=== PATIENT | female | born 1960 | race Caucasian/White ===

== ENCOUNTER → 2019-07-01 09:09 | Outpatient (BNVA) | payer SELFPAY | PROVIDERS: Family Provider Nurse Practitioner; PCP Nurse Practitioner; Visit Provider Nurse Practitioner | DX: R73.09 Other abnormal glucose (principal) | CPT/HCPCS: 83036 ==

== ENCOUNTER 2019-08-10 15:18 | Outpatient (REF) | payer SELFPAY ==
[2019-08-10 18:23] LABS: Chol HDL Ratio 3.35 mg/dL (0.0-4.40); Cholesterol 191 mg/dL (0-200); Glucose 56 mg/dL (65-115); HDL Cholesterol 57 mg/dL (60-100); LDL Cholesterol Calculated 114 mg/dL (50-129); Triglycerides 100 mg/dL (0-150)
[2019-08-10 21:37] LABS: Estmated Average Glucose 114; Hemoglobin A1C 5.6 % (4.0-6.0)
== END 2019-08-10 15:19 | disposition home or self-care (01) ==
LOC: LAB 15:18
PROVIDERS: Family Provider Nurse Practitioner; PCP Nurse Practitioner; Visit Provider Dermatology
DX: Z13.9 Encounter for screening, unspecified (principal)
CPT/HCPCS: 80061; 82947; 83036

== ENCOUNTER → 2019-10-18 17:20 | Outpatient (BNVA) | payer SELFPAY | PROVIDERS: Family Provider Nurse Practitioner; PCP Nurse Practitioner; Visit Provider Nurse Practitioner | DX: J44.9 Chronic obstructive pulmonary disease, unspecified (principal); F41.9 Anxiety disorder, unspecified; E03.8 Other specified hypothyroidism; G25.81 Restless legs syndrome; M81.0 Age-related osteoporosis without current pathological fracture; M54.12 Radiculopathy, cervical region; E78.2 Mixed hyperlipidemia; E55.9 Vitamin D deficiency, unspecified | CPT/HCPCS: 80053; 80061; 84443 ==

== ENCOUNTER → 2019-11-09 16:26 | Outpatient (BNVA) | payer SELFPAY | PROVIDERS: Family Provider Nurse Practitioner; PCP Nurse Practitioner; Visit Provider Nurse Practitioner | DX: R51 Headache (principal); E78.2 Mixed hyperlipidemia | CPT/HCPCS: 81000; 81003; 85025 ==

== ENCOUNTER → 2019-11-17 11:13 | Outpatient (BNVA) | payer SELFPAY | PROVIDERS: Family Provider Nurse Practitioner; PCP Nurse Practitioner; Visit Provider Nurse Practitioner | DX: E55.9 Vitamin D deficiency, unspecified (principal); M25.50 Pain in unspecified joint; M25.9 Joint disorder, unspecified | CPT/HCPCS: 82306; 82607; 85651; 86140 ==

== ENCOUNTER → 2019-11-21 17:00 | Outpatient (BNVA) | payer OTHER, SELFPAY | PROVIDERS: Family Provider Nurse Practitioner; PCP Nurse Practitioner; Visit Provider Nurse Practitioner | DX: M25.50 Pain in unspecified joint (principal); Z20.828 Contact with and (suspected) exposure to other viral communicable diseases; J44.9 Chronic obstructive pulmonary disease, unspecified; E78.2 Mixed hyperlipidemia | CPT/HCPCS: 87635 ==

== ENCOUNTER → 2019-12-06 09:20 | Outpatient (BNVA) | payer OTHER, SELFPAY | PROVIDERS: Family Provider Nurse Practitioner; PCP Nurse Practitioner; Visit Provider Nurse Practitioner | DX: Z20.828 Contact with and (suspected) exposure to other viral communicable diseases (principal) | CPT/HCPCS: 87635 ==

== ENCOUNTER → 2019-12-21 08:00 | Outpatient (BNVA) | payer OTHER, SELFPAY | PROVIDERS: Family Provider Nurse Practitioner; PCP Nurse Practitioner; Visit Provider Nurse Practitioner Family | DX: U07.1 COVID-19 (principal); Z20.828 Contact with and (suspected) exposure to other viral communicable diseases | CPT/HCPCS: 87635 ==

== ENCOUNTER → 2019-12-27 11:13 | Outpatient (BNVA) | payer OTHER, SELFPAY | PROVIDERS: Family Provider Nurse Practitioner; PCP Nurse Practitioner; Visit Provider Nurse Practitioner | DX: U07.1 COVID-19 (principal); Z20.828 Contact with and (suspected) exposure to other viral communicable diseases | CPT/HCPCS: 87635 ==

== ENCOUNTER → 2020-01-04 14:27 | Outpatient (BNVA) | payer OTHER, SELFPAY | PROVIDERS: Family Provider Nurse Practitioner; PCP Nurse Practitioner; Visit Provider Nurse Practitioner | DX: U07.1 COVID-19 (principal) | CPT/HCPCS: 87635 ==

== ENCOUNTER → 2020-01-16 15:22 | Outpatient (BNVA) | payer SELFPAY | PROVIDERS: Family Provider Nurse Practitioner; PCP Nurse Practitioner; Visit Provider Nurse Practitioner | DX: J44.9 Chronic obstructive pulmonary disease, unspecified (principal); R05 Cough | CPT/HCPCS: 71046; 85025 ==

== ENCOUNTER 2020-01-20 12:52 | Outpatient (CLI) | payer OTHER, SELFPAY ==
--- NOTE | 2020-01-20 13:00 | CT_ITS ---
WS: [id number] CT CHEST ANGIOGRAPHY WITH REFORMATS HISTORY: sob had COVID 11/21/19 TECHNIQUE: Contiguous axial images are obtained through the chest during arterial injection of intrav enous contrast. Images are reconstructed to evaluate the pulmonary arteries. MIP imaging also reviewe d. All CT scans at [facility] use at least one of these dose optimization techniques: aut omated exposure control; mA and/or kV adjustment per patient size (includes targeted exams where dose is matched to clinical indication); or iterative reconstruction. CONTRAST: Omnipaque 350; 95 mL IV. DLP: 539.14 mGy.cm COMPARISON: None available. Good opacification of the pulmonary arteries. No pulmonary emboli. Normal size pulmonary artery. Norm al size aorta with mild atherosclerosis. Cardiac chambers are normal size. No significant adenopathy. RIGHT hilar lymph node measures 8 mm. Aberrant RIGHT subclavian artery. Hyperinflated lungs with emphysema. No pneumonia. 4 mm nodule adjacent to the RIGHT minor fissure. No pleural effusion. No pericardial effusion. No abnormality in the upper abdomen. Mild increase in tho racic kyphosis. CT/CT angio chest PE protcl [id number] IMPRESSION: 1. No pulmonary embolism. 2. Chronic emphysema with no pneumonia. 3. Mild atherosclerosis aorta. 4. Aberrant RIGHT subclavian artery.
[2020-01-20] MEDS: iohexol 350 mg/mL 100 mL Btl IV (14:01)
== END 2020-01-20 12:53 | disposition home or self-care (01) ==
LOC: RAD 12:54
PROVIDERS: Family Provider Nurse Practitioner; PCP Nurse Practitioner; Visit Provider Nurse Practitioner
DX: R06.02 Shortness of breath (principal); J43.9 Emphysema, unspecified; I70.0 Atherosclerosis of aorta; Q27.8 Other specified congenital malformations of peripheral vascular system
CPT/HCPCS: 71275

== ENCOUNTER → 2020-01-30 10:44 | Outpatient (BNVA) | payer OTHER, SELFPAY | PROVIDERS: Family Provider Nurse Practitioner; PCP Nurse Practitioner; Visit Provider Nurse Practitioner | DX: R07.9 Chest pain, unspecified (principal); E78.2 Mixed hyperlipidemia; J44.9 Chronic obstructive pulmonary disease, unspecified; K21.9 Gastro-esophageal reflux disease without esophagitis | CPT/HCPCS: 80053; 80061; 85025 ==

== ENCOUNTER 2020-03-23 15:14 | Outpatient (CLI) | payer OTHER, SELFPAY ==
--- NOTE | 2020-03-23 15:45 | USCV_ITS ---
Neena Vero Age: 59 Gender: F : 1960 Exam Date: 03/23/2020 15:37 Ordering Phys: Benjamin Miranda Technologist: Wero Knapp Exam Location: [facility] [place] Indication: SOB CHEST PAIN BP: 128 / 81 HR: 88 Rhythm: Sinus Technical Quality: Fair MEASUREMENTS (Male / Female) Normal Values 2D ECHO LV Diastolic Diameter PLAX 3.2 cm 4.2 - 5.9 / 3.9 - 5.3 cm LV Systolic Diameter PLAX 2.0 cm IVS Diastolic Thickness 0.8 cm 0.6 - 1.0 / 0.6 - 0.9 cm IVS Systolic Thickness 1.4 cm LVPW Diastolic Thickness 0.8 cm 0.6 - 1.0 / 0.6 - 0.9 cm LVPW Systolic Thickness 1.0 cm LVOT Diameter 2.1 cm LV Ejection Fraction 2D Teich 70.0 % LV Ejection Fraction MOD 2C 57.1 % LV Ejection Fraction 2C AL 56.8 % LA Diameter 3.0 cm LA Width 2.3 cm LA Height 4.0 cm RA Width 2.3 cm RA Height 4.0 cm Aorta at Sinotubular Diameter 1.0 cm M-MODE LV Diastolic Diameter MM 4.0 cm 4.2 - 5.9 / 3.9 - 5.3 cm LV Systolic Diameter MM 2.5 cm LV Ejection Fraction MM Teich 68.2 % IVS Diastolic Thickness MM 0.9 cm 0.6 - 1.0 / 0.6 - 0.9 cm IVS Systolic Thickness MM 1.4 cm LVPW Diastolic Thickness MM 1.4 cm 0.6 - 1.0 / 0.6 - 0.9 cm LVPW Systolic Thickness MM 1.5 cm RV Diastolic Diameter MM 1.3 cm Aortic Annulus Diameter 3.1 cm LA Ao Ratio MM 1.0 MV E Point Septal Separation 0.7 cm DOPPLER AV Peak Velocity 101.0 cm/s LVOT Peak Velocity 88.0 cm/s AV Area Cont Eq vti 3.1 cm squared AV Area Cont Eq pk 2.9 cm squared MV Area PHT 5.0 cm squared Mitral E to A Ratio 0.7 MV E' Velocity 28.5 cm/s Mitral E to MV E' Ratio 6.2 Mitral E to LV E' Lateral Ratio 7.2 Mitral E to LV E' Septal Ratio 5.5 TR Peak Velocity 160.0 cm/s TR Peak Gradient 10.2 mmHg TV Peak E Velocity 87.0 cm/s Right Atrial Pressure 3.0 mmHg Pulmonary Artery Systolic Pressu 13.2 mmHg PV Peak Velocity 106.0 cm/s FINDINGS Left Ventricle Normal left ventricular size, systolic function and wall thickness, with no regional wall motion abnormalities. Left ventricular ejection fraction is estimated at 65%. Normal diastolic function. Right Ventricle Normal right ventricular size and systolic function. Right ventricular systolic pressure 13.2 mmHg. Right Atrium Normal right atrial size. Left Atrium Normal left atrial size. Mitral Valve Mitral valve not well visualized. Mildly thickened mitral valve. No mitral valve stenosis. No mitral valve regurgitation. Aortic Valve Aortic valve not well visualized. No aortic valve stenosis. No aortic valve regurgitation. Tricuspid Valve Structurally normal tricuspid valve. Pulmonic Valve Pulmonic valve not well visualized. No pulmonary valve stenosis. Pericardium No pericardial effusion. Aorta Normal size aortic root and proximal ascending aorta. CONCLUSIONS 1. Normal left ventricular size, systolic function and wall thickness, with no regional wall motion abnormalities. Left ventricular ejection fraction is estimated at 65%. Normal diastolic function. 2. Normal right ventricular size and systolic function. 3. When compared to previous echocardiogram dated 07/27/2013, there has been no significant change. Carolina Sandoval MD (Electronically Signed) Final Date: 26 March 2020 17:59 S
== END 2020-03-23 15:15 | disposition home or self-care (01) ==
LOC: US 15:16
PROVIDERS: PCP Nurse Practitioner; Visit Provider Nurse Practitioner
DX: R07.9 Chest pain, unspecified (principal); R06.02 Shortness of breath; E03.8 Other specified hypothyroidism
CPT/HCPCS: 80053; 84443; 93306

== ENCOUNTER → 2020-03-30 11:48 | Outpatient (BNVA) | payer OTHER, SELFPAY | PROVIDERS: PCP Nurse Practitioner; Visit Provider Nurse Practitioner Family | DX: Z12.31 Encounter for screening mammogram for malignant neoplasm of breast (principal); R59.0 Localized enlarged lymph nodes; Z12.39 Encounter for other screening for malignant neoplasm of breast | CPT/HCPCS: 80053; 85025 ==

== ENCOUNTER 2020-04-04 11:22 | Outpatient (CLI) | payer OTHER, SELFPAY ==
--- NOTE | 2020-04-04 11:30 | MM_ITS ---
WS: [id number] BILATERAL DIGITAL SCREENING MAMMOGRAPHY WITH CAD CLINICAL INFORMATION: breast cancer screening HISTORY: Screening mammogram. No current complaints. COMPARISON: TECHNIQUE: Bilateral CC and MLO views. FINDINGS: The breasts are composed of heterogeneous fibroglandular density tissue, which can limit the detectio n of small underlying mass lesions. No suspicious mass, asymmetry, calcifications, or architectural d istortion. No evidence of malignancy. Punctate and lucent centered calcifications. Biopsy clip right breast. MM/[place] [id number] IMPRESSION: BI-RADS: 2-Benign FOLLOW UP: 1 Year Follow-up Recommend return to annual screening mammography.
== END 2020-04-04 11:23 | disposition home or self-care (01) ==
LOC: RADSHAW 11:24
PROVIDERS: PCP Nurse Practitioner; Visit Provider Nurse Practitioner Family
DX: Z12.31 Encounter for screening mammogram for malignant neoplasm of breast (principal)
CPT/HCPCS: 77067

== ENCOUNTER → 2020-10-29 14:37 | Outpatient (BNVA) | payer OTHER, SELFPAY | PROVIDERS: PCP Nurse Practitioner; Visit Provider Nurse Practitioner | DX: E03.8 Other specified hypothyroidism (principal); E78.2 Mixed hyperlipidemia; M79.18 Myalgia, other site | CPT/HCPCS: 80053; 80061; 84443; 85025 ==

== ENCOUNTER → 2020-12-06 11:04 | Outpatient (BNVA) | payer OTHER, SELFPAY | PROVIDERS: PCP Nurse Practitioner; Visit Provider Nurse Practitioner Family | DX: Z11.52 Encounter for screening for COVID-19 (principal); J44.1 Chronic obstructive pulmonary disease with (acute) exacerbation; R42 Dizziness and giddiness | CPT/HCPCS: 87635 ==

== ENCOUNTER → 2021-06-20 11:45 | Outpatient (BNVA) | payer OTHER, SELFPAY | PROVIDERS: PCP Nurse Practitioner; Visit Provider Nurse Practitioner | DX: M25.511 Pain in right shoulder (principal) | CPT/HCPCS: 73030 ==

== ENCOUNTER → 2021-06-24 09:05 | Outpatient (BNVA) | payer OTHER, SELFPAY | PROVIDERS: PCP Nurse Practitioner; Visit Provider Nurse Practitioner | DX: E03.8 Other specified hypothyroidism (principal); E78.2 Mixed hyperlipidemia; E55.9 Vitamin D deficiency, unspecified | CPT/HCPCS: 80053; 80061; 84443 ==

== ENCOUNTER → 2022-01-03 09:00 | Outpatient (BNVA) | payer OTHER, SELFPAY | PROVIDERS: PCP Nurse Practitioner; Visit Provider Nurse Practitioner | DX: E78.2 Mixed hyperlipidemia (principal); E03.8 Other specified hypothyroidism; J44.9 Chronic obstructive pulmonary disease, unspecified; M81.0 Age-related osteoporosis without current pathological fracture; E55.9 Vitamin D deficiency, unspecified; F41.9 Anxiety disorder, unspecified; R09.82 Postnasal drip; G43.509 Persistent migraine aura without cerebral infarction, not intractable, without status migrainosus; G25.81 Restless legs syndrome; K21.9 Gastro-esophageal reflux disease without esophagitis; F32.9 Major depressive disorder, single episode, unspecified | CPT/HCPCS: 80053; 80061; 84443; 85025 ==

== ENCOUNTER → 2022-07-10 12:13 | Outpatient (BNVA) | payer MEDICARE, SELFPAY | PROVIDERS: PCP Nurse Practitioner; Visit Provider Nurse Practitioner | DX: E03.8 Other specified hypothyroidism (principal); E55.9 Vitamin D deficiency, unspecified; E78.2 Mixed hyperlipidemia | CPT/HCPCS: 80053; 80061; 82306; 84443; 85025 ==

== ENCOUNTER → 2022-11-20 13:52 | Outpatient (BNVA) | payer MEDICARE, SELFPAY | PROVIDERS: PCP Nurse Practitioner; Visit Provider Nurse Practitioner Family | DX: R10.30 Lower abdominal pain, unspecified (principal); R39.9 Unspecified symptoms and signs involving the genitourinary system | CPT/HCPCS: 74018; 80053; 81000; 85025 ==

== ENCOUNTER → 2022-11-24 08:55 | Outpatient (BNVA) | payer MEDICARE, SELFPAY | PROVIDERS: PCP Nurse Practitioner; Visit Provider Nurse Practitioner Family | DX: K56.7 Ileus, unspecified (principal); R10.30 Lower abdominal pain, unspecified; K59.00 Constipation, unspecified | CPT/HCPCS: 74018 ==

== ENCOUNTER → 2022-12-26 15:18 | Outpatient (BNVA) | payer MEDICARE, SELFPAY | PROVIDERS: PCP Nurse Practitioner; Visit Provider Surgery | DX: R10.9 Unspecified abdominal pain (principal); K21.9 Gastro-esophageal reflux disease without esophagitis; K59.00 Constipation, unspecified | CPT/HCPCS: 99203 ==

== ENCOUNTER 2023-01-30 06:50 | Day surgery (SDC) | payer MEDICARE, SELFPAY ==
[2023-01-28 13:12] VITALS: BMI 27.0
[2023-01-30 07:11] VITALS: BP 127/65; PULSE 93; RESP 16; TEMP 36.6; O2SAT 93
[2023-01-30] MEDS: sodium chloride 0.9% 1,000 ML 30 ML IV (07:22)
--- NOTE | 2023-01-30 08:10 | ANES.PREANE2 ---
Pre-Anesthetic Assessment Height/Weight: Height 1.55 m Weight 64.864 kg Temp Pulse Resp BP Pulse Ox O2 Del Method 97.8 F 93 16 127/65 93 Room Air 01/30/23 07:11 01/30/23 07:11 01/30/23 07:11 01/30/23 07:11 01/30/23 07:11 01/30/23 07:11 Preop Diagnosis: screening Operation Date: 01/30/23 08:00 Proposed Procedures p [id number] EGD [id number] Colonoscopy z12.11,R10.9(Not Applicable) - Mohamud Morrell DO s Colonoscopy(Not Applicable) - Mohamud Morrell DO Was Beta Tray taken within 24 hours: N/A Was Clonidine taken within 24 hours: N/A Last intake: Intake Last Liquid Date 01/29/23 Last Liquid Time 23:00 Last Solid Date 01/28/23 Last Solid Time 19:00 Social Tobacco and No alcohol 1/2 pack pack(s) per day last cig last night Exam alert, oriented x 3, clear to auscultation bilaterally and regular rate & rhythm Airway Submandibular: within normal limits Cervical ROM: within normal limits Mallampati: Class I Dentition: full Comments: Comments: full dentures, removed History/ROS No significant history except as noted Pulmonary Chronic Obstructive Pulmonary Disease albuterol usage at home as needed, usually every other day CV/HEM Hypertension no recent nitro usage, denies chest pain Chronic Renal Insufficiency Hepatic None reported GI Gastroesophageal Reflux Disease controlled Metabolic Thyroid Disease Musc/skel Lower Back Pain Neuropsych Anxiety and Depression Anesthetic Plan ASA status: 3 Anesthesia: Anesthesia Evaluation and MAC Risk of > 500 ml blood loss (7ml/kg in children): Yes, adequate IV access and fluids planned Medications/Allergies Home Medications Medication Instructions Recorded Confirmed Last Taken Type nitroglycerin 0.4 mg sublingual 0.4 mg sublingual Q5M PRN chest 01/19/20 01/28/23 Unknown Rx tablet pain #25 tabs albuterol sulfate 2.5 mg/3 mL 2.5 mg (3 mL) inhalation Q4H PRN 01/03/22 01/28/23 01/28/23 Rx (0.083 %) solution for nebulization shortness of breath or wheezing #300 mL metoclopramide HCl 5 mg tablet 5 mg PO DAILY #7 tabs 0601/30/23 01/29/23 Rx (Reglan) albuterol sulfate 90 mcg/actuation 2 puff inhalation Q6H PRN 12/13/22 01/30/23 01/29/23 Rx aerosol inhaler (Ventolin HFA) shortness of breath or wheezing #8.5 grams alendronate 70 mg tablet (Fosamax) 70 mg PO .weekly #12 tabs 12/13/22 01/28/23 01/28/23 Rx cholecalciferol (vitamin D3) 125 125 mcg PO DAILY #30 caps 12/13/22 01/30/23 01/29/23 Rx mcg (5,000 unit) capsule doxepin 25 mg capsule 25 mg PO BID #180 caps 12/13/22 01/30/23 01/29/23 Rx duloxetine 60 mg capsule,delayed 60 mg PO BID #180 caps 12/13/22 01/30/23 01/29/23 Rx release famotidine 20 mg tablet 20 mg PO DAILY #90 tabs 12/13/22 01/28/23 01/28/23 Rx fenofibrate nanocrystallized 145 145 mg PO DAILY #90 tabs 12/13/22 01/30/23 01/29/23 Rx mg tablet (Tricor) fluticasone propionate 110 2 inh inhalation BID #12 grams 12/13/22 01/30/23 01/29/23 Rx mcg/actuation HFA aerosol inhaler levothyroxine 25 mcg tablet 25 mcg PO DAILY #90 tabs 12/13/22 01/30/23 01/29/23 Rx montelukast 10 mg tablet 10 mg PO DAILY #90 tabs 12/13/22 01/30/23 01/29/23 Rx (Singulair) propranolol 60 mg capsule,24 60 mg PO DAILY #90 caps 12/13/22 01/28/23 01/28/23 Rx hr,extended release (Inderal LA) ropinirole 2 mg tablet 2 mg PO .at bedtime #90 tabs 12/13/22 01/28/23 01/28/23 Rx topiramate 100 mg tablet 100 mg PO BID #180 tabs 12/13/22 01/28/23 01/28/23 Rx umeclidinium 62.5 mcg-vilanterol 1 inh inhalation DAILY #60 ea 12/13/22 01/28/23 01/28/23 Rx 25 mcg/actuation powdr for inhalation (Anoro Ellipta) pantoprazole 40 mg tablet,delayed 40 mg PO BID 6 weeks #84 tabs 12/26/22 01/30/23 01/29/23 Rx release (Protonix) Allergies Allergy/AdvReac Type Severity Reaction Status Date / Time atorvastatin [From Lipitor] Allergy ALGY-Rash Verified 12/26/22 15:27 naproxen Allergy ALGY-Hives Verified 12/26/22 15:27 Current Medications Generic Name Dose Route Start Last Admin Trade Name Freq PRN Reason Stop Dose Admin Sodium Chloride 1,000 mls @ 30 mls/hr 01/30/23 07:00 01/30/23 07:22 Sodium Chloride 0.9% IV 01/31/23 06:59 30 mls/hr .Q24H ANA Administration PFSH Anesthesia Medical History (Updated 12/26/22 @ 16:01 by Mohamud Morrell DO) Acid reflux Adult onset hypothyroidism Age related osteoporosis Anxiety and depression COPD, mild COVID-19 virus infection Mixed hyperlipidemia Restless leg Vitamin D insufficiency Surgical History (Updated 12/26/22 @ 16:01 by Mohamud Morrell DO) H/O arthroscopic knee surgery right H/O tubal ligation History of appendectomy History of carpal tunnel surgery bilateral History of partial hysterectomy without BSO History of shoulder surgery Left Hx of colonoscopy more than 10 years ago, no polyps Family History Other Diabetes Hypertension Osteoarthritis Social History Smoking and tobacco status: current every day smoker Second hand smoke exposure: Yes Smoking risk assessment/counseling performed?: Yes Alcohol intake: never Desire information about alcohol rehabilitation?: No Counseling given: No Substance/Drug Use: never Desire information about substance/drug rehabilitation?: No Counseling given: No Caregiver/support person: No Lives independently: Yes Household members: spouse Housing: House Marital status: service: No Current occupational status: employed Do you think of yourself as: Straight/Heterosexual Current gender identity: Female Data Anesthesia Cardiac Studies: Echocardiogram Ultrasound 03/23/20
--- NOTE | 2023-01-30 09:07 | P.HP_ITS ---
Providers/Chief Complaint Primary Care Provider: NADIRA Jerome Chief Complaint: Z12.11, R10.9 History of Present Illness Vero Chaudhary is a 62 year old female Medications/Allergies Home Medications Medication Instructions Recorded Confirmed Last Taken Type nitroglycerin 0.4 mg sublingual 0.4 mg sublingual Q5M PRN chest 01/19/20 01/28/23 Unknown Rx tablet pain #25 tabs albuterol sulfate 2.5 mg/3 mL 2.5 mg (3 mL) inhalation Q4H PRN 01/03/22 01/28/23 01/28/23 Rx (0.083 %) solution for nebulization shortness of breath or wheezing #300 mL metoclopramide HCl 5 mg tablet 5 mg PO DAILY #7 tabs 11/26/22 01/30/23 01/29/23 Rx (Reglan) albuterol sulfate 90 mcg/actuation 2 puff inhalation Q6H PRN 12/13/22 01/30/23 01/29/23 Rx aerosol inhaler (Ventolin HFA) shortness of breath or wheezing #8.5 grams alendronate 70 mg tablet (Fosamax) 70 mg PO .weekly #12 tabs 12/13/22 01/28/23 01/28/23 Rx cholecalciferol (vitamin D3) 125 125 mcg PO DAILY #30 caps 12/13/22 01/30/23 01/29/23 Rx mcg (5,000 unit) capsule doxepin 25 mg capsule 25 mg PO BID #180 caps 12/13/22 01/30/23 01/29/23 Rx duloxetine 60 mg capsule,delayed 60 mg PO BID #180 caps 12/13/22 01/30/23 01/29/23 Rx release famotidine 20 mg tablet 20 mg PO DAILY #90 tabs 12/13/22 01/28/23 01/28/23 Rx fenofibrate nanocrystallized 145 145 mg PO DAILY #90 tabs 12/13/22 01/30/23 01/29/23 Rx mg tablet (Tricor) fluticasone propionate 110 2 inh inhalation BID #12 grams 12/13/22 01/30/23 01/29/23 Rx mcg/actuation HFA aerosol inhaler levothyroxine 25 mcg tablet 25 mcg PO DAILY #90 tabs 12/13/22 01/30/23 01/29/23 Rx montelukast 10 mg tablet 10 mg PO DAILY #90 tabs 12/13/22 01/30/23 01/29/23 Rx (Singulair) propranolol 60 mg capsule,24 60 mg PO DAILY #90 caps 12/13/22 01/28/23 01/28/23 Rx hr,extended release (Inderal LA) ropinirole 2 mg tablet 2 mg PO .at bedtime #90 tabs 12/13/22 01/28/23 01/28/23 Rx topiramate 100 mg tablet 100 mg PO BID #180 tabs 12/13/22 01/28/23 01/28/23 Rx umeclidinium 62.5 mcg-vilanterol 1 inh inhalation DAILY #60 ea 12/13/22 01/28/23 01/28/23 Rx 25 mcg/actuation powdr for inhalation (Anoro Ellipta) pantoprazole 40 mg tablet,delayed 40 mg PO BID 6 weeks #84 tabs 12/26/22 01/30/23 01/29/23 Rx release (Protonix) Allergies Allergy/AdvReac Type Severity Reaction Status Date / Time atorvastatin [From Lipitor] Allergy ALGY-Rash Verified 12/26/22 15:27 naproxen Allergy ALGY-Hives Verified 12/26/22 15:27 PFSH Acute PFSH: Medical History (Updated 12/26/22 @ 16:01 by Mohamud Morrell DO) Acid reflux Adult onset hypothyroidism Age related osteoporosis Anxiety and depression COPD, mild COVID-19 virus infection Mixed hyperlipidemia Restless leg Vitamin D insufficiency Surgical History (Updated 12/26/22 @ 16:01 by Mohamud Morrell DO) H/O arthroscopic knee surgery right H/O tubal ligation History of appendectomy History of carpal tunnel surgery bilateral History of partial hysterectomy without BSO History of shoulder surgery Left Hx of colonoscopy more than 10 years ago, no polyps Family History Other Diabetes Hypertension Osteoarthritis Social History Smoking and tobacco status: current every day smoker Second hand smoke exposure: Yes Smoking risk assessment/counseling performed?: Yes Alcohol intake: never Desire information about alcohol rehabilitation?: No Counseling given: No Substance/Drug Use: never Desire information about substance/drug rehabilitation?: No Counseling given: No Caregiver/support person: No Lives independently: Yes Household members: spouse Housing: House Marital status: service: No Current occupational status: employed Do you think of yourself as: Straight/Heterosexual Current gender identity: Female Vitals/I&O/Wt Last Vital Signs Temp 97.8 F 01/30/23 07:11 Pulse 93 01/30/23 07:11 Resp 16 01/30/23 07:11 BP 127/65 01/30/23 07:11 Pulse Ox 93 01/30/23 07:11 O2 Del Method Room Air 01/30/23 07:11 Weight last 48 hrs Weight 143 lb A&P Assessment and plan (1) Constipation: (2) Abdominal pain: (3) Colon cancer screening: (4) Acid reflux: Plan EGD and Colonoscopy Attestations Medical Necessity Statement*: home Coding Level of Care Code Acute Code for [facility] Fwd Diagnoses Constipation K59.00 Abdominal pain R10.9 Colon cancer screening Z12.11 Acid reflux K21.9
[2023-01-30 09:30] VITALS: BP 92/61; PULSE 65; RESP 14; TEMP 36.3; O2SAT 95
[2023-01-30 09:43] VITALS: BP 97/60; PULSE 68; RESP 16; O2SAT 96
--- NOTE | 2023-01-30 13:06 | ANE.PACU2 ---
Inpatient post-anesthesia follow up: Airway intact: Yes Vital signs: Temperature 97.4 F Pulse Rate 68 Respiratory Rate 16 Blood Pressure 97/60 Pulse Oximetry 96 Oxygen Delivery Me thod Room Air Oxygen Flow Rate 2 Fraction of Inspir ed Oxygen Hydration adequate: Yes Nausea and vomiting: No Pain level: 2 Mental status: Baseline
== END 2023-01-30 10:05 | disposition home or self-care (01) ==
PROVIDERS: PCP Nurse Practitioner; Visit Provider Surgery
PROC: 0DJ08ZZ Inspection of Upper Intestinal Tract, Via Natural or Artificial Opening Endoscopic (ICD-10-PCS; CPT 43235; principal; 2023-01-30 08:00)
PROC: 0DJD8ZZ Inspection of Lower Intestinal Tract, Via Natural or Artificial Opening Endoscopic (ICD-10-PCS; CPT 45378; 2023-01-30 08:00)
DX: R10.9 Unspecified abdominal pain (principal); K59.00 Constipation, unspecified; K21.9 Gastro-esophageal reflux disease without esophagitis; K29.50 Unspecified chronic gastritis without bleeding; K57.30 Diverticulosis of large intestine without perforation or abscess without bleeding; F17.210 Nicotine dependence, cigarettes, uncomplicated; J44.9 Chronic obstructive pulmonary disease, unspecified; I12.9 Hypertensive chronic kidney disease with stage 1 through stage 4 chronic kidney disease, or unspecified chronic kidney disease; N18.9 Chronic kidney disease, unspecified; E03.9 Hypothyroidism, unspecified
CPT/HCPCS: 43239; 45378; 88305; 88342; G0121; J2704; J7030

== ENCOUNTER → 2023-02-25 15:08 | Outpatient (BNVA) | payer MEDICARE, SELFPAY | PROVIDERS: PCP Nurse Practitioner; Visit Provider Surgery | DX: Z09 Encounter for follow-up examination after completed treatment for conditions other than malignant neoplasm (principal) | CPT/HCPCS: 99213 ==

== ENCOUNTER → 2023-06-04 11:53 | Outpatient (BNVA) | payer MEDICARE, SELFPAY | PROVIDERS: PCP Nurse Practitioner; Visit Provider Nurse Practitioner | DX: E55.9 Vitamin D deficiency, unspecified (principal); E03.8 Other specified hypothyroidism; E78.2 Mixed hyperlipidemia; M81.0 Age-related osteoporosis without current pathological fracture; F41.9 Anxiety disorder, unspecified; F32.9 Major depressive disorder, single episode, unspecified; K21.9 Gastro-esophageal reflux disease without esophagitis; J44.9 Chronic obstructive pulmonary disease, unspecified; R09.82 Postnasal drip; G43.509 Persistent migraine aura without cerebral infarction, not intractable, without status migrainosus; G25.81 Restless legs syndrome | CPT/HCPCS: 80053; 80061; 82306; 82607; 84443 ==

== ENCOUNTER → 2023-10-20 10:05 | Outpatient (BNVA) | payer MEDICARE, SELFPAY | PROVIDERS: PCP Nurse Practitioner; Visit Provider Nurse Practitioner | DX: E03.8 Other specified hypothyroidism (principal); E55.9 Vitamin D deficiency, unspecified; N18.2 Chronic kidney disease, stage 2 (mild) | CPT/HCPCS: 80053; 80061; 82607; 84443 ==

== ENCOUNTER → 2023-10-28 09:26 | Outpatient (BNVA) | payer MEDICARE, SELFPAY | PROVIDERS: PCP Nurse Practitioner; Visit Provider Nurse Practitioner | DX: N18.30 Chronic kidney disease, stage 3 unspecified (principal) | CPT/HCPCS: 81000 ==

== ENCOUNTER 2024-01-07 13:46 | Outpatient (CLI) | payer MEDICARE, SELFPAY ==
--- NOTE | 2024-01-07 14:00 | MM_ITS ---
WS: [id number] BILATERAL 3D TOMOSYNTHESIS DIGITAL DIAGNOSTIC MAMMOGRAPHY WITH CAD CLINICAL INFORMATION: N64.52 - Nipple discharge HISTORY: Bilateral clear nipple discharge COMPARISON: 2019 TECHNIQUE: Bilateral CC, MLO, and ML views. FINDINGS: Scattered fibroglandular densities bilaterally. Biopsy clips RIGHT breast. Lucent centered calcificat ion LEFT breast. A few nodular densities in the anterior RIGHT breast are unchanged. Small asymmetric density subareolar LEFT breast. Ultrasound subareolar bilateral is pending. ULTRASOUND BREAST BILATERAL TECHNIQUE: Ultrasound bilateral breast focused area of concern. CLINICAL INFORMATION: N64.52 - Nipple discharge FINDINGS: RIGHT BREAST: Ultrasound subareolar. Normal underlying subareolar breast tissue. No cystic or solid l esions. No suspicious findings. LEFT BREAST: Ultrasound subareolar. No suspicious findings. No cystic or solid lesions. Normal underl ru parenchymal tissue. IMPRESSION: MM/[place] [id number] BI-RADS: 2-Benign FOLLOW UP: 1 Year Follow-up Recommend return to annual screening mammography.
--- NOTE | 2024-01-07 14:32 | US_ITS ---
WS: [id number] BILATERAL 3D TOMOSYNTHESIS DIGITAL DIAGNOSTIC MAMMOGRAPHY WITH CAD CLINICAL INFORMATION: N64.52 - Nipple discharge HISTORY: Bilateral clear nipple discharge COMPARISON: 2019 TECHNIQUE: Bilateral CC, MLO, and ML views. FINDINGS: Scattered fibroglandular densities bilaterally. Biopsy clips RIGHT breast. Lucent centered calcificat ion LEFT breast. A few nodular densities in the anterior RIGHT breast are unchanged. Small asymmetric density subareolar LEFT breast. Ultrasound subareolar bilateral is pending. ULTRASOUND BREAST BILATERAL TECHNIQUE: Ultrasound bilateral breast focused area of concern. CLINICAL INFORMATION: N64.52 - Nipple discharge FINDINGS: RIGHT BREAST: Ultrasound subareolar. Normal underlying subareolar breast tissue. No cystic or solid l esions. No suspicious findings. LEFT BREAST: Ultrasound subareolar. No suspicious findings. No cystic or solid lesions. Normal underl ru parenchymal tissue. IMPRESSION: US/US breast BI limited* [id number] BI-RADS: 2-Benign FOLLOW UP: 1 Year Follow-up Recommend return to annual screening mammography.
== END 2024-01-07 13:47 | disposition home or self-care (01) ==
LOC: RAD 13:47
PROVIDERS: PCP Nurse Practitioner; Visit Provider Nurse Practitioner
DX: N64.52 Nipple discharge (principal); R92.323 Mammographic fibroglandular density, bilateral breasts; R92.1 Mammographic calcification found on diagnostic imaging of breast
CPT/HCPCS: 76642; 77062; G0279

== ENCOUNTER → 2024-01-11 08:28 | Outpatient (BNVA) | payer MEDICARE, SELFPAY | PROVIDERS: PCP Nurse Practitioner; Visit Provider Nurse Practitioner | DX: N18.31 Chronic kidney disease, stage 3a (principal); E55.9 Vitamin D deficiency, unspecified; E03.8 Other specified hypothyroidism; R07.9 Chest pain, unspecified; E78.2 Mixed hyperlipidemia | CPT/HCPCS: 80053; 80061; 82306; 82607; 84443; 85025 ==

== ENCOUNTER → 2024-01-13 08:52 | Outpatient (BNVA) | payer MEDICARE, SELFPAY | PROVIDERS: PCP Nurse Practitioner; Visit Provider Nurse Practitioner | DX: E11.9 Type 2 diabetes mellitus without complications (principal) | CPT/HCPCS: 81000 ==

== ENCOUNTER → 2024-02-03 14:26 | Outpatient (BNVA) | payer MEDICARE, SELFPAY | PROVIDERS: PCP Nurse Practitioner; Referring Provider Nurse Practitioner; Visit Provider Internal Medicine | DX: R07.9 Chest pain, unspecified (principal); I45.9 Conduction disorder, unspecified; I49.8 Other specified cardiac arrhythmias | CPT/HCPCS: 93005; 99204 ==

== ENCOUNTER 2024-03-07 08:12 | Outpatient (CLI) | payer MEDICARE, SELFPAY ==
--- NOTE | 2024-03-07 | ECG_ITS ---
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 Interpretive Statements LEXISCAN SESTAMIBI STRESS TEST Procedure: At the baseline, the blood pressure was 120/70 mmHg with a heart rate of 61 bpm. The electrocardiogram showed normal sinus rhythm, normal axis with normal ST and T's. The Lexiscan was infused over a period of 20 seconds. A total of 0.4 mg of Lexiscan was infused. The stress phase was continued for a total of 5 minutes. Heart rate was at the end of stress phase was 88 bpm and a blood pressure of 125/69 mmHg. The EKG at the peak infusion revealed normal sinus rhythm with no significant ST-T wave changes. Sestamibi was injected 20 seconds after the Lexiscan infusion. Blood pressure at the end of recovery phase was 115/67 mmHg with a heart rate of 90 bpm. Conclusion: 1. Normal EKG response to Lexiscan infusion 2. No Lexiscan induced chest pain or cardiac arrhythmia. 3. Normal blood pressure and heart rate response. 4. Sestamibi/sestamibi perfusion scan pending; see separate report. Electronically Signed On 03-12-2024 19:08:08 CDT by Gregg Yanez M.D. [email or web address]
--- NOTE | 2024-03-07 08:13 | NMCV_ITS ---
NM tawana perf SPECT r/s* [id number] Vero Chaudhary Age: 63 Gender: F : 1960 Exam Date: 03/07/2024 09:30 Ordering Phys: Gregg Yanez M.D ([email or web address]) Technologist: DEREJE Bateman Exam Location: [facility] Indications: cp STRESS TEST Please see separate stress test report in [facility] for full findings IMAGE PROTOCOL Rest/Stress 1 Lexiscan Day Radiopharmaceutical Dose (mCi) Administration Site Administered by Rest: Tc-99m 10.8 IV Monique Luu MAJOR DONOR COORDINATOR Sestamibi Stress:Tc-99m 32.0 IV Monique Zepedagle, MAJOR DONOR COORDINATOR Sestamibi Rest: 07-Mar-2024 60 Discovery 630 Stress: 07-Mar-2024 30 Discovery 630 0.4mg Lexiscan. Images obtained in supine and prone position. SPECT RESULTS Technical Quality: Good Raw Data Analysis: Normal Image Corrections: No attenuation or motion correction applied Summed Stress Score: 0 Summed Rest Score: 0 Summed Difference Score: 0 PERFUSION FINDINGS SPECT images demonstrate homogeneous tracer distribution throughout the myocardium. FUNCTIONAL RESULTS (calculated via Gated SPECT) Stress Image LV EF (%): 91 Stress EDV (mL):44 TID: 1 Stress ESV (mL):4 FUNCTIONAL FINDINGS: There is normal left ventricular systolic function. IMPRESSIONS 1. Normal myocardial perfusion imaging with no evidence of ischemia 2. LV systolic function is normal Gregg Yanez MD (Electronically Signed) Final Date: 07 March 2024 12:08 S
[2024-03-07 08:24] VITALS: BMI 25.4
[2024-03-07] MEDS: regadenoson 0.4 Mg/5 ml Syringe IVP (10:10)
[2024-03-07 10:29] VITALS: BP 119/67; PULSE 81
== END 2024-03-07 08:13 | disposition home or self-care (01) ==
PROVIDERS: PCP Nurse Practitioner; Visit Provider Internal Medicine
DX: R07.9 Chest pain, unspecified (principal); R06.02 Shortness of breath
CPT/HCPCS: 36415; 78452; 93017; 96374; A9500; J2785

== ENCOUNTER → 2024-03-31 09:35 | Outpatient (BNVA) | payer MEDICARE, SELFPAY | PROVIDERS: PCP Nurse Practitioner; Visit Provider Nurse Practitioner | DX: E03.8 Other specified hypothyroidism; N18.31 Chronic kidney disease, stage 3a | CPT/HCPCS: 80053; 81000; 84443 ==

== ENCOUNTER → 2024-05-17 12:42 | Outpatient (BNVA) | payer MEDICARE, SELFPAY | PROVIDERS: PCP Nurse Practitioner; Visit Provider Internal Medicine | DX: E78.2 Mixed hyperlipidemia (principal); R07.9 Chest pain, unspecified; R06.02 Shortness of breath; F17.210 Nicotine dependence, cigarettes, uncomplicated | CPT/HCPCS: 99213 ==

== ENCOUNTER 2024-05-30 12:51 | Outpatient (CLI) | payer MEDICARE, SELFPAY ==
--- NOTE | 2024-05-30 13:00 | MR_ITS ---
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 COMPARISON: None available. TECHNIQUE: Diffusion imaging, multiplanar T1, T2 and FLAIR imaging obtained. No evidence for acute infarct or hemorrhage. Rivera-white matter differentiation is normal. Mild bilateral volume loss and mild T2 and FLAIR signal hyperintensities throughout the white matter. Slightly greater distribution of white matter disease on the RIGHT. This is probably related to smal l vessel ischemic disease. No large territory infarct. No hemorrhage. Ventricles and extra-axial spaces are normal. No inferior displacement of cerebellar tonsils. The sella turcica and pituitary gland are unremarkabl e. Dural venous sinuses and [place] of Prater demonstrate no abnormality on this unenhanced studies. Paranasal sinuses: Clear. Mastoid air cells: Normal. Calvarium and scalp: Intact. MR/MR head wo con* [id number] IMPRESSION: 1. No acute infarct. 2. Mild cerebral volume loss and mild small vessel ischemic type changes in th e white matter. Foci of increased signal can also be noted with migraines, diab etes, smoking or hypertension. 3. No large prior infarct.
== END 2024-05-30 12:52 | disposition home or self-care (01) ==
LOC: RAD 12:53
PROVIDERS: PCP Nurse Practitioner; Visit Provider Nurse Practitioner
DX: G43.509 Persistent migraine aura without cerebral infarction, not intractable, without status migrainosus (principal)
CPT/HCPCS: 70551

== ENCOUNTER → 2024-06-30 09:30 | Outpatient (BNVA) | payer MEDICARE, SELFPAY | PROVIDERS: PCP Nurse Practitioner; Visit Provider Nurse Practitioner | DX: N18.31 Chronic kidney disease, stage 3a (principal) | CPT/HCPCS: 81000 ==

== ENCOUNTER → 2024-09-20 10:56 | Outpatient (BNVA) | payer MEDICARE, SELFPAY | PROVIDERS: PCP Nurse Practitioner; Visit Provider Nurse Practitioner | DX: E78.2 Mixed hyperlipidemia (principal); E03.8 Other specified hypothyroidism | CPT/HCPCS: 80053; 80061; 81000; 84443; 85025 ==

== ENCOUNTER → 2024-11-22 14:20 | Outpatient (BNVA) | payer MEDICARE, SELFPAY | PROVIDERS: PCP Nurse Practitioner; Visit Provider Internal Medicine | DX: R07.9 Chest pain, unspecified (principal); R06.02 Shortness of breath; E78.2 Mixed hyperlipidemia; Z79.82 Long term (current) use of aspirin; F17.210 Nicotine dependence, cigarettes, uncomplicated | CPT/HCPCS: 99214 ==

== ENCOUNTER 2025-01-26 09:44 | Outpatient (CLI) | payer MEDICARE, SELFPAY ==
--- NOTE | 2025-01-26 09:40 | MM_ITS ---
WS: [id number] BILATERAL SCREENING DIGITAL TOMOSYNTHESIS MAMMOGRAM WITH CAD HISTORY: Z12.31 - Encounter for screening mammogram for malignant ... COMPARISON: 01/07/2024, 04/04/2020 Bilateral CC and MLO views with tomosynthesis and synthetic mammography submitted. Computer aided detection analyzed. Breast composition: The breasts are heterogeneously dense, which may obscure small masses. No suspicious masses, microcalcifications or architectural distortion. Scattered asymmetries with vascular calcifications and round punctate calcifications. MM/MM scr BI tomosynthesis [id number] IMPRESSION: BI-RADS: 2 - Benign FOLLOW UP: 1 Year Follow-up
== END 2025-01-26 09:45 | disposition home or self-care (01) ==
LOC: MOBLMAM 09:45
PROVIDERS: PCP Nurse Practitioner; Visit Provider Nurse Practitioner
DX: Z12.31 Encounter for screening mammogram for malignant neoplasm of breast (principal); R92.333 Mammographic heterogeneous density, bilateral breasts; R92.1 Mammographic calcification found on diagnostic imaging of breast; N64.89 Other specified disorders of breast
CPT/HCPCS: 77063; 77067

== ENCOUNTER 2025-02-21 16:32 | Emergency (ER) | payer MEDICARE, SELFPAY ==
--- NOTE | 2025-02-21 16:35 | XRR_ITS ---
PROCEDURE INFORMATION: Exam: XR Chest Exam date and time: 02/21/2025 4:50 PM Age: 64 years old Clinical indication: Shortness of breath TECHNIQUE: Imaging protocol: Radiologic exam of the chest. Views: 1 view. COMPARISON: CT angio chest PE protcl [id number] 01/20/2020 1:56 PM FINDINGS: Lungs: No lobar consolidation. Prominence of the pulmonary interstitium. Bibasilar atelectasis. Pleural spaces: Unremarkable. No pleural effusion. No pneumothorax. Heart/Mediastinum: Unremarkable. No cardiomegaly. Bones/joints: Unremarkable. XR/XR chest 1V portable [id number] IMPRESSION: As above.
--- OUTSIDE RECORDS SUMMARY | 2025-02-21 16:36 | XMS_ITS | Clinical Summary ---
Author Organization [facility] Address [address] Etienne: Epic Prelude ADT RAYMUNDO BARRIOS [id number] Care Team Providers Care Vice President Of Instruction Name Role Phone Benjamin Miranda NP Primary Care Provider Allergies Active Allergy Reactions Criticality Noted Date Comments Naproxen Hives High 12/23/2011 Active Problems Problem Noted Date Diagnosed Date COPD, mild 12/23/2011 Immunizations Immunization Administration Dates Next Due (TDVAX)(7 YRS UP) TETANUS AN D DIPHTHERIA TOXOIDS, ADSORBED (2 LF OF TETANUS TOXOID AND 2 LF OF DIPHTHERIA TOXOID), 0.5ML (PF), IM 11/02/1998 Hepatitis B Vaccine 08/12/2001,02/19/2001,2000 Social History Tobacco Use Types Packs/Day Years Used Date Smoking Tobacco: Every Day Smokeless Tobacco: Never Alcohol Use Standard Drinks/Week Comments Not Asked 0 (1 standard drink = 0.6 oz pur e alcohol) Comments Unknown Sex and Gender Information Value Date Recorded Sex Assigned at Not on file Legal Sex Female 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 Gender Identity Not on file Sexual Orientation Not on file Plan of Treatment Health Maintenance Due Date Last Done Comments PNEUMOCOCCAL VACCINE 50+ YEARS (1 of 2 - PCV) 10/15/18 79 DTAP/TDAP/TD VACCINES (1 - Tdap) 11/03/1998 11/02/18 99 BREAST CANCER SCREENING 1999 COLORECTAL SCREENING 10/15/2004 Colorectal Cancer Screening 10/15/2004 FIT-DNA Q 3 years 10/15/2004 FIT/FOBT Q 1 year 10/15/2004 Flex Sig/CT Colonography Q 5 years 10/15/2004 ZOSTER VACCINE (1 of 2) 10/15/2009 RSV VACCINE (60+ or ) (1 - Risk 60-74 years 1-dose series) 2019 OSTEOPOROSIS SCREENING 10/15/2024 INFLUENZA VACCINE (#1) 2025 Care Teams Vice President Of Instruction Relationship Specialty Start Date End Date Benjamin Miranda NP [address] [place] [id number] PCP - General NURSE PRACTITIONER 12/23/11
--- OUTSIDE RECORDS SUMMARY | 2025-02-21 16:36 | XMS_ITS | Clinical Summary ---
Author Organization [facility] Address [address] [place] [address] Care Team Providers Care Plastic Sheets Supervisor Name Role Phone Benjamin Miranda NP Primary Care Provider Allergies Active Allergy Reactions Criticality Noted Date Comments Naproxen Hives High 12/23/2011 Medications traZODone (DESYREL) 50 mg Oral tablet Take 50 mg by mouth daily at bedtime. Active venlafaxine (EFFEXOR) 75 mg Oral tablet Take 75 mg by mouth daily. Active methotrexate (RHEUMATREX) 2.5 mg Oral Tab Take 6 Tabs by mouth every 7 days. Active folic acid (FOLVITE) 1 mg Oral tablet Take 1 mg by mouth daily. Active nitroglycerin (NITROSTAT) 0.[address] 0.4 mg under tongue every 5 minutes as needed. Active fluticasone (FLOVENT HFA) 110 mcg/actuation Inhalation Aero Take 2 Puffs by inhalation 2 times daily. Active albuterol (PROVENTIL HFA) 90 mcg/Actuation Inhalation HFAA Take 2 Puffs by inhalation 4 times daily as needed. Active Active Problems Problem Noted Date Diagnosed Date COPD, mild 12/23/2011 Immunizations Immunization Administration Dates Next Due (TDVAX)(7 YRS UP) TETANUS AN D DIPHTHERIA TOXOIDS, ADSORBED (2 LF OF TETANUS TOXOID AND 2 LF OF DIPHTHERIA TOXOID), 0.5ML (PF), IM 11/02/1998 Hepatitis B Vaccine 08/12/2001,02/19/2001,2000 Social History Tobacco Use Types Packs/Day Years Used Date Smoking Tobacco: Every Day Cigarettes Smokeless Tobacco: Never Alcohol Use Standard Drinks/Week Comments Not Asked 0 (1 standard drink = 0.6 oz pur e alcohol) Comments Unknown Sex and Gender Information Value Date Recorded Sex Assigned at Not on file 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 Gender Identity Not on file Sexual Orientation Not on file Last Filed Vital Signs Vital Sign Reading Time Taken Comments Blood Pressure 120/70 12/23/2011 9:50 AM CDT Pulse 80 12/23/2011 9:50 AM CDT Temperature - - Respiratory Rate - - Oxygen Saturation 97% 12/23/2011 9:50 AM CDT Inhaled Oxygen Concentration - - Weight 60.8 kg (134 lb) 12/23/2011 9:50 AM CDT Height 154.9 cm (5' 1 ) 12/23/2011 9:50 AM CDT Body Mass Index 25.32 12/23/2011 9:50 AM CDT Plan of Treatment Health Maintenance Due Date [...] OSTEOPOROSIS SCREENING 10/15/2024 INFLUENZA VACCINE (#1) 2025 Insurance [facility] OPEN ACCESS PLUS DISABILITY [place] [address] Care Teams Plastic Sheets Supervisor Relationship Specialty Start Date End Date Benjamin Miranda NP PCP - General NURSE PRACTITIONER 12/23/11
[2025-02-21 16:40] VITALS: BP 100/59; PULSE 87; RESP 17; TEMP 37.7; O2SAT 95; BMI 21.7
[2025-02-21 16:43] VITALS: PULSE 75; RESP 16; O2SAT 95
--- NOTE | 2025-02-21 16:43 | ED_ITS ---
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 She said she has been feeling bad for couple days now. No chest pain. No abdominal pain. She has had some nausea but no vomiting. She said she could not inhale her inhaler because he was so short of breath Related Data Home Medications ?Medication ?Instructions ?Recorded ?Confirmed aspirin 81 mg tablet,delayed 81 mg PO DAILY 03/31/24 0 02/21/25 release (Adult Aspirin Regimen) nystatin 100,000 unit/gram topical 1 applic topical BI D PRN 11/22/24 02/21/25 cream Previous Rx's ?Medication ?Instructions ?Recorded nitroglycerin 0.4 mg sublingual 0.4 mg sublingual Q5M PRN chest 10/28/23 tablet pain #25 tabs cholecalciferol (vitamin D3) 125 125 mcg PO DAILY #30 caps 01/13/24 mcg (5,000 unit) capsule isosorbide mononitrate 30 mg 15 mg (1/2 x 30 mg) PO DA VANDA #45 11/22/24 tablet,extended release 24 hr tabs albuterol sulfate 90 mcg/actuation 2 puff inhalation Q 6H PRN 12/13/24 aerosol inhaler (Ventolin HFA) shortness of breath or wheezing #8.5 grams alendronate 70 mg tablet (Fosamax) 70 mg PO .weekly #1 2 tabs 12/13/24 dapagliflozin propanediol 10 mg 10 mg PO QAM #90 tabs 12/13/24 tablet (Farxiga) famotidine 20 mg tablet 20 mg PO BID #180 tabs 12/13 ipratropium 0.5 mg-albuterol 3 mg 3 ml inhalation Q6H PRN wheezing 12/13/24 (2.5 mg base)/3 mL nebulization #90 mL soln levothyroxine 25 mcg tablet 25 mcg PO DAILY #90 tabs 0 12/13/24 lovastatin 10 mg tablet 10 mg PO DAILY #90 tabs 07 1/25 montelukast 10 mg tablet 10 mg PO DAILY #90 tabs 07/09 (Singulair) propranolol 120 mg capsule,24 120 mg PO .at bedtime #9 0 caps 12/13/24 hr,extended release (Inderal LA) ropinirole 2 mg tablet 2 mg PO .at bedtime #90 tabs 12/13/24 topiramate 100 mg tablet 100 mg PO BID #180 tabs 07/09 venlafaxine 150 mg 150 mg PO QAM #90 caps 12/13 capsule,extended release 24 hr (Effexor XR) doxycycline monohydrate 100 mg 100 mg PO BID 10 days # 20 caps 02/21/25 capsule prednisone 20 mg tablet 60 mg (3 x 20 mg) PO DAILY 5 days 02/21/25 #15 tabs Allergies Allergy/AdvReac Type Severity Reaction Status Date / Time atorvastatin (From Lipitor) Allergy ALGY-Rash Verified 02/21/25 14:43 naproxen Allergy ALGY-Hives Verified 02/21/25 14:43 Review of Systems 2 Narrative: Constitutional symptoms: Negative except as documented in HPI. Skin symptoms: Negative except as documented in HPI. Eye symptoms: Negative except as documented in HPI. ENMT symptoms: Negative except as documented in HPI. Respiratory symptoms: Negative except as documented in HPI. Cardiovascular symptoms: Negative except as documented in HPI. Gastrointestinal symptoms: Negative except as documented in HPI. Genitourinary symptoms: Negative except as documented in HPI. Musculoskeletal symptoms: Negative except as documented in HPI. Neurologic symptoms: Negative except as documented in HPI. Psychiatric symptoms: Negative except as documented in HPI. Endocrine symptoms: Negative except as documented in HPI. PFSH ED 2 PFSH: Medical History (Updated 02/21/25 @ 18:26 by Purnima Lowry MD) CKD (chronic kidney disease) stage 3, GFR 30-59 ml/min Age related osteoporosis Adult onset hypothyroidism Acid reflux COVID-19 virus infection COPD, mild Anxiety and depression Restless leg Mixed hyperlipidemia Vitamin D insufficiency Surgical History Hx of colonoscopy more than 10 years ago, no polyps History of shoulder surgery Left History of appendectomy H/O arthroscopic knee surgery right History of carpal tunnel surgery bilateral History of partial hysterectomy without BSO H/O tubal ligation Family History Other Diabetes Hypertension Osteoarthritis Social History Smoking and tobacco/nicotine status: current every day tobacco/nicotine user Second hand smoke exposure: Yes Alcohol intake: never Substance/Drug Use: never Caregiver/support person: No Lives independently: Yes Household members: spouse Housing: House Marital status: service: No Current occupational status: employed Do you think of yourself as: Straight/Heterosexual Current gender identity: Female Physical Exam 2 Narrative: EXAM NARRATIVE: General: Alert, no acute distress. Skin: Warm, dry. Head: Normocephalic, atraumatic. Neck: Supple, trachea midline. Eye: Extraocular movements are intact. Ears, nose, mouth and throat: Oral mucosa moist. Cardiovascular: Regular rate and rhythm, Normal peripheral perfusion. Respiratory: coarse, scattered wheeze, mild increased wob. tachypnea, breath sounds are equal, Symmetrical chest wall expansion. Gastrointestinal: Soft, Nontender, Non distended Musculoskeletal: Normal ROM, no deformity. Neurological: Alert and oriented, No focal neurological deficit observed. Psychiatric: Cooperative, appropriate mood & affect. Course 2 Vital Signs: Vital signs: Vital Signs Temperature 99.9 F H 02/21/25 16:40 Pulse Rate 75 02/21/25 16:43 Respiratory Rate 16 02/21/25 16:43 Blood Pressure 100/59 02/21/25 16:40 Pulse Oximetry 95 02/21/25 16:43 Oxygen Delivery Me thod Room Air 02/21/25 16:43 Fraction of Inspir ed Oxygen 21 02/21/25 16:43 MDM - SOB/Dyspnea Medical Decision Making Differential diagnosis for patient with shortness of breath includes but is not limited to and based on the above HPI, review of systems and physical exam: Pneumonia. Bronchitis. Asthma or COPD with acute exacerbation. Acute coronary syndrome / ME. Pulmonary embolism. Anxiety. Congestive heart failure. Viral infections including influenza and Covid-19. Atrial fibrillation. Anxiety. Pleural effusion. Pneumothorax. Orders placed to evaluate differential diagnosis based on the above differential, HPI and physical exam Chest x-ray: No acute process. No infiltrate. No pneumothorax. This was reviewed and interpreted by myself the emergency room physician. I also reviewed the radiology report. Lab Review: Laboratory results were reviewed and interpreted by myself the emergency room physician. Mild leukocytosis. No anemia. No renal failure. Patient has not required any oxygen. ABG does not show any CO2 retention. I reviewed the patient's medical record. Reexamination: Patient remained stable. No increased work of breathing. No altered mental status. No focal motor deficits. Still with some mild wheeze but no increased work of breathing. Assessment and plan: COPD exacerbation Fever ? IV doxycycline, IV Solu-Medrol and 2 updrafts in the emergency room - Discharged home - Discussed plan with patient. Answered any questions. - Evaluation and treatment of this problem were appropriate in the emergency setting. Lab Data 02/21/25 16:46 02/21/25 16:46 Labs/Radiology: Radiology Impressions Chest X-Ray 02/21/25 16:35 IMPRESSION: As above. Laboratory Results WBC 14.57 10^3/uL (3.29-11.43) H 02/21/25 16:46 RBC 3.78 10^6/uL (3.85-5.65) L 02/21/25 16:46 Hgb 12.00 g/dL (11.27-16.99) 02/21/25 16:46 Hct 36.4 % (36-47) 02/21/25 16:46 MCV 96.3 fl (85-98) 02/21/25 16:46 MCH 31.7 pg (27-33) 02/21/25 16:46 MCHC 33.0 g/dL (30-55) 02/21/25 16:46 RDW 13.3 % (12.1-15.1) 02/21/25 16:46 Plt Count 290 10^3/cmm (157-399) 02/21/25 16:46 MPV 9.5 fL (7.4-10.4) 02/21/25 16:46 Neut % (Auto) 79.9 % 02/21/25 16:46 Lymph % (Auto) 10.6 % 02/21/25 16:46 Stearns % (Auto) 8.4 % 02/21/25 16:46 Eos % (Auto) 0.1 % 02/21/25 16:46 Baso % (Auto) 0.5 % 02/21/25 16:46 Neut # (Auto) 11.62 10^3/uL (1.8-7.7) H 02/21/25 16:46 Lymph # (Auto) 1.6 10^3/uL (0.8-4.8) 02/21/25 16:46 Stearns # (Auto) 1.2 10^3/uL (0.2-0.9) H 02/21/25 16:46 Eos # (Auto) 0.0 10^3/uL (0.0-0.8) 02/21/25 16:46 Baso # (Auto) 0.1 10^3/uL (0.0-0.1) 02/21/25 16:46 Nucleated RBC % (auto) 0 % 02/21/25 16:46 Nucleated RBCs # 0.0 /100WBC 02/21/25 16:46 Specimen Type Arterial 02/21/25 16:43 Sample Site Radial, right 02/21/25 16:43 ABG pH 7.35 (7.35-7.45) 02/21/25 16:43 ABG pCO2 34.1 mmHg (35-45) L 02/21/25 16:43 ABG pO2 163.0 mmHg (80.0-100.0) H 02/21/25 16:43 ABG HCO3 18.8 mmol/L (22-26) L 02/21/25 16:43 ABG O2 Saturation > 99.1 02/21/25 16:43 ABG Base Excess -6.0 mmol/L (-2.0-2.0) L 02/21/25 16:43 Marcelino Test Pos 02/21/25 16:43 A-a O2 Gradient Not Reportable 02/21/25 16:43 Hematocrit 37.3 % (37-47) 02/21/25 16:43 Hgb O2 Saturation 97.0 % (95-100) 02/21/25 16:43 Carboxyhemoglobin 2.5 %THgb (0.4-20.1) 02/21/25 16:43 Methemoglobin 0.3 % (0.4-1.5) L 02/21/25 16:43 Total Hemoglobin 12.2 g/dL (12-16) 02/21/25 16:43 Sodium 133.0 mmol/L (131-143) 02/21/25 16:43 Potassium 3.7 mmol/L (3.5-5.0) 02/21/25 16:43 Glucose 106.0 mg/dL (70-115) 02/21/25 16:43 Ionized Calcium 1.3 mmol/L (1.1-1.4) 02/21/25 16:43 O2 Delivery Device Cont neb 02/21/25 16:43 O2 Liters/Min 8.0 % 02/21/25 16:43 Colon Therapist ID Walci 02/21/25 16:43 Sodium 134 mmol/L (136-145) L 02/21/25 16:46 Potassium 3.9 mmol/L (3.5-5.1) 02/21/25 16:46 Chloride 104 mmol/L (98-107) 02/21/25 16:46 Carbon Dioxide 18 mmol/L (22-29) L 02/21/25 16:46 Anion Gap 15.9 (5-19) 02/21/25 16:46 BUN 13 mg/dL (8-23) 02/21/25 16:46 Creatinine 0.8 mg/dL (0.5-0.9) 02/21/25 16:46 GFR Calculation 72.0 mL/min (90-130) L 02/21/25 16:46 Glucose 109 mg/dL (65-115) 02/21/25 16:46 Calculated Osmolality 279 mOsm/kg (285-295) L 02/21/25 16:46 Lactic Acid 0.9 mmol/L (0.5-2.2) 02/21/25 16:46 Calcium 9.5 mg/dL (8.5-10.5) 02/21/25 16:46 Total Bilirubin 0.2 mg/dL (0.15-1.2) 02/21/25 16:46 AST 18 U/L (0-32) 02/21/25 16:46 ALT 10 U/L (0-33) 02/21/25 16:46 Alkaline Phosphatase 60 U/L (35-105) 02/21/25 16:46 C-Reactive Protein 140.9 mg/L (0.0-4.9) H 02/21/25 16:46 NT-Pro-B Natriuret Pep 458 pg/mL (0-125) H 02/21/25 16:46 Total Protein 7.0 g/dL (6.6-8.7) 02/21/25 16:46 Albumin 3.8 g/dL (3.5-5.2) 02/21/25 16:46 Globulin 3.2 g/dL (1.3-4.6) 02/21/25 16:46 Procalcitonin 0.07 ng/mL (0-0.5) 02/21/25 16:46 All radiology interpretation(s) finalized by discharge Discharge Plan Discharge Patient Disposition: Home Clinical Impression: COPD with acute exacerbation, Bronchitis Condition: Stable Prescriptions: New prednisone 20 mg tablet 60 mg PO DAILY 5 Days Qty: 15 0RF doxycycline monohydrate 100 mg capsule 100 mg PO BID 10 Days Qty: 20 0RF No Action cholecalciferol (vitamin D3) 125 mcg (5,000 unit) capsule 125 mcg PO DAILY Qty: 30 5RF aspirin [Adult Aspirin Regimen] 81 mg tablet,delayed release (DR/EC) 81 mg PO DAILY nystatin 100,000 unit/gram cream 1 applic topical BID PRN nitroglycerin 0.4 mg tablet, sublingual 0.4 mg SUBLINGUAL Q5M PRN (Reason: chest pain) Qty: 25 0RF ipratropium-albuterol 0.5 mg-3 mg(2.5 mg base)/3 mL solution for nebulization 3 ml inhalation Q6H PRN (Reason: wheezing) Qty: 90 5RF albuterol sulfate [Ventolin HFA] 90 mcg/actuation HFA aerosol inhaler 2 puff inhalation Q6H PRN (Reason: shortness of breath or wheezing) Qty: 8.5 2RF alendronate [Fosamax] 70 mg tablet 70 mg PO .weekly Qty: 12 1RF dapagliflozin propanediol [Farxiga] 10 mg tablet 10 mg PO QAM Qty: 90 1RF famotidine 20 mg tablet 20 mg PO BID Qty: 180 1RF levothyroxine 25 mcg tablet 25 mcg PO DAILY Qty: 90 1RF lovastatin 10 mg tablet 10 mg PO DAILY Qty: 90 0RF montelukast [Singulair] 10 mg tablet 10 mg PO DAILY Qty: 90 1RF propranolol [Inderal LA] 120 mg capsule,extended release 24 hr 120 mg PO .at bedtime Qty: 90 1RF ropinirole 2 mg tablet 2 mg PO .at bedtime Qty: 90 1RF topiramate 100 mg tablet 100 mg PO BID Qty: 180 1RF venlafaxine [Effexor XR] 150 mg capsule,extended release 24hr 150 mg PO QAM Qty: 90 1RF Rx Instructions: Stop Cymbalta 60mg 2 times day isosorbide mononitrate 30 mg tablet extended release 24 hr 15 mg PO DAILY Qty: 45 3RF Discharge Orders: Discharge ED (Routine); Ordered 02/21/25 Ordered By: Purnima Lowry Referrals: Benjamin Miranda, [facility] [Primary Care Provider, Family Practice] Discharge Diet: Usual diet Discharge Activity: Increase activity as tolerated Patient Instructions: Chronic Bronchitis (ED), Opioid Safety, Pain Management, Patient Portal & Arabella Instructions Activity Restrictions/Additional Instructions: Thank you for choosing [facility] for your healthcare needs today. You have been screened and evaluated and felt safe for discharge. Health conditions do change or evolve sometimes and as such it is important that you follow up with your Primary Doctor to be re checked, 3-5 days is a general good time frame for follow up. You are always welcome to return to the ED for re assessment if your symptoms are worsening or you have new concerns Print Language: Indonesian Coding Level of Care Code ED Manager Body for Jasmin Baez
[2025-02-21 16:54] LABS: ABG PCO2 34.1 mmHg (35-45); ABG PH Result 7.35 (7.35-7.45); Arterial Blood Gas Hematocrit 37.3 % (37-47); Blood Gas Allen Test Pos; Blood Gas LPM 8.0 %; Blood Gas Operator Identificat WALCI; Blood Gas Sample Site Radial, right; Blood Gas Sample Type Arterial; Carboxyhemoglobin 2.5 %THgb (0.4-20.1); Glucose Level-ABG 106.0 mg/dL (70-115); HCO3 ABG 18.8 mmol/L (22-26); Ionized Calcium Level - ABG 1.3 mmol/L (1.1-1.4); Methemoglobin 0.3 % (0.4-1.5); Oxygen Saturation ABG > 99.1; PO2 ABG 163.0 mmHg (80.0-100.0); Potassium Level - ABG 3.7 mmol/L (3.5-5.0); Sodium Level - ABG 133.0 mmol/L (131-143)
[2025-02-21 17:02] LABS: Hematocrit 36.4 % (36-47); Hemoglobin 12.00 g/dL (11.27-16.99); Mean Corpuscular HGB Conc 33.0 g/dL (30-55); Mean Corpuscular Hemoglobin 31.7 pg (27-33); Mean Corpuscular Volume 96.3 fl (85-98); Nucleated Red Blood Cells % 0 %; Platelet Count 290 10^3/cmm (157-399); Red Blood Count 3.78 10^6/uL (3.85-5.65); White Blood Count 14.57 10^3/uL (3.29-11.43)
[2025-02-21 17:23] LABS: Lactic Sepsis W/Reflex 0.9 mmol/L (0.5-2.2)
[2025-02-21 17:43] LABS: NT Pro B Type Natriuretic Pept 458 pg/mL (0-125); Procalcitonin 0.07 ng/mL (0-0.5)
[2025-02-21] MEDS: doxycycline 100 MG in sodium chloride 0.9% (plus) 100 ML IV (17:47)
[2025-02-21] MEDS: methylPREDNISolone sod succ 125 mg/2 mL INJ IVP (17:47)
[2025-02-21 17:55] LABS: Alanine Aminotransferase 10 U/L (0-33); Albumin Level 3.8 g/dL (3.5-5.2); Alkaline Phosphatase 60 U/L (35-105); Anion Gap 15.9 (5-19); Aspartate Amino Transferase 18 U/L (0-32); Blood Urea Nitrogen 13 mg/dL (8-23); Calcium 9.5 mg/dL (8.5-10.5); Carbon Dioxide 18 mmol/L (22-29); Chloride 104 mmol/L (98-107); Creatinine Clr Calc Pharmacy 54.8352; Globulin 3.2 g/dL (1.3-4.6); Glucose 109 mg/dL (65-115); Osmolality Calculated 279 mOsm/kg (285-295); Potassium 3.9 mmol/L (3.5-5.1); Sodium 134 mmol/L (136-145); Total Protein 7.0 g/dL (6.6-8.7)
[2025-02-21 18:00] VITALS: BP 103/65; PULSE 80; O2SAT 92
--- NOTE | 2025-02-21 18:31 | ECG_ITS ---
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 Measurements Intervals Harvey Rate: 70 P: 76 IA: 174 QRS: 6 QRSD: 96 T: 64 QT: 404 QTc: 436 Interpretive Statements SINUS RHYTHM Compared to ECG 02/03/2024 14:33:24 Left-axis deviation no longer present T-wave abnormality no longer present Electronically Signed On 02-22-2025 21:08:55 CDT by Oscar Arndt M.D. [email or web address]
[2025-02-21 18:55] VITALS: BP 88/54; PULSE 70; O2SAT 91
[2025-02-21 19:21] LABS: Respiratory Syncytial Virus Ce NEGATIVE (Negative); SARS-CoV-2 PCR NEGATIVE (Negative)
== END 2025-02-21 18:58 | disposition home or self-care (01) ==
PROVIDERS: Emergency Provider Emergency Medicine; PCP Nurse Practitioner
DX: J44.1 Chronic obstructive pulmonary disease with (acute) exacerbation (principal); J40 Bronchitis, not specified as acute or chronic; N18.9 Chronic kidney disease, unspecified; Z79.82 Long term (current) use of aspirin; Z86.16 Personal history of COVID-19
CPT/HCPCS: 36415; 36600; 71045; 80051; 80053; 82330; 82805; 83605; 83880; 84145; 85025; 86140; 87040; 87071; 87426; 87637; 87880; 93005; 94640; 96374; 96375; 99285; J2919; J3490; J7613; J9999

== ENCOUNTER → 2025-03-14 14:58 | Outpatient (BNVA) | payer MEDICARE, SELFPAY | PROVIDERS: PCP Nurse Practitioner; Visit Provider Nurse Practitioner | DX: E03.8 Other specified hypothyroidism (principal); E55.9 Vitamin D deficiency, unspecified | CPT/HCPCS: 80053; 82306; 82607; 84443; 85025 ==

== ENCOUNTER 2025-03-20 13:52 | Outpatient (CLI) | payer MEDICARE, SELFPAY ==
--- NOTE | 2025-03-20 14:00 | XR_ITS ---
WS: [id number] SCREENING DEXA SCAN [employer] CLINICAL INFORMATION: Z78.0 - Asymptomatic menopausal state COMPARISON: 2017 FINDINGS: The L1-L4 bone mineral density measures 0.960 g/cm2. This corresponds to a T score score of -1.8 and Z score of 0.3. Left femoral neck bone mineral density measures 0.800 g/cm2. This corresponds to a T score of -1.6 and Z score of -0.1. Right femoral neck bone mineral density measures 0.822 g/cm2. This corresponds to a T score -1.5of and Z score of 0.1. Mean femoral neck bone mineral density measures 0.811 g/cm2. This corresponds to a T score of -1.6 and Z score of 0.0. XR/XR DEXA axial skeleton* [id number] IMPRESSION: Osteopenia lumbar spine. Osteopenia femoral necks. Patient's FRAX calculated 10 year probability for major osteoporotic fracture i s 9.3% and osteoporotic hip fracture is 1.4%. Bone density lumbar spine decreased -2.2% Bone density femoral necks decreased -5.9%
== END 2025-03-20 13:53 | disposition home or self-care (01) ==
LOC: RAD 13:52
PROVIDERS: PCP Nurse Practitioner; Visit Provider Nurse Practitioner
DX: Z13.820 Encounter for screening for osteoporosis (principal); Z78.0 Asymptomatic menopausal state; M85.88 Other specified disorders of bone density and structure, other site
CPT/HCPCS: 77080

== ENCOUNTER 2025-03-24 12:35 | Outpatient (CLI) | payer MEDICARE, SELFPAY ==
--- NOTE | 2025-03-24 13:00 | MR_ITS ---
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 No evidence for acute infarct or hemorrhage. Rivera-white matter differentiation is normal. Mild cerebral and cerebellar atrophy. Scattered T2 and FLAIR signal changes throughout the white matter. Similar distribution as on the prior exam. No large territory infarct. No hemorrhage. Normal hippocampal formations. Ventricles and extra-axial spaces are normal. No inferior displacement of cerebellar tonsils. The sella turcica and pituitary gland are unremarkable. Dural venous sinuses and [place] demonstrate no abnormality on this unenhanced studies. Paranasal sinuses: Clear. Mastoid air cells: Normal. Calvarium and scalp: Intact. MR/MR head wo con* [id number] IMPRESSION: 1. No acute infarct. 2. Mild cerebral volume loss and small vessel disease. Very similar to the sara or study. No progression. No large territory infarct. 3. Normal hippocampal formations.
[2025-03-24] MEDS: iohexol 350 mg/mL 500 mL Btl (per mL) IV (13:56)
[2025-03-24] MEDS: iohexol 350 mg/mL 500 mL Btl (per mL) PO (14:01)
--- NOTE | 2025-03-24 14:15 | CTR_ITS ---
PROCEDURE INFORMATION: Exam: CT Abdomen And Pelvis With Contrast Exam date and time: 03/24/2025 2:00 PM Age: 64 years old Clinical indication: Prior surgery; Surgery date: 6+ months; Surgery type: Hyster, tubal; Abnormal weight loss, 20# since spring; Additional info: R63.4 - abnormal weight loss TECHNIQUE: Imaging protocol: Computed tomography of the abdomen and pelvis with contrast. Radiation optimization: All CT scans at this facility use at least one of these dose optimization techniques: automated exposure control; mA and/or kV adjustment per patient size (includes targeted exams where dose is matched to clinical indication); or iterative reconstruction. Contrast material: OMNI 350; Contrast volume: 100 ml; Contrast route: INTRAVENOUS (IV); COMPARISON: CR XR abdomen 1V* [id number] 11/24/2022 8:53 AM RADIATION DOSE METRICS: Total DLP (mGy-cm): 218.41 FINDINGS: Liver: Normal. No mass. Gallbladder and biliary ducts: Normal. No calcified stones. No ductal dilation. Pancreas: Normal. No ductal dilation. Spleen: Normal. No splenomegaly. Adrenal glands: Normal. No mass. Kidneys and ureters: Normal. No hydronephrosis. Stomach and bowel: Colonic diverticulosis without diverticulitis. No bowel dilatation. Appendix: No evidence of appendicitis. Intraperitoneal space: Unremarkable. No free air. No significant fluid collection. Vasculature: Unremarkable. No abdominal aortic aneurysm. Lymph nodes: Unremarkable. No enlarged lymph nodes. Urinary bladder: Unremarkable as visualized. Reproductive: The uterus appears surgically absent. Bones/joints: Unremarkable. No acute fracture. Soft tissues: Unremarkable. CT/CT abdomen pelvis w con* [id number] IMPRESSION: 1. No acute findings. 2. Other findings as detailed above.
== END 2025-03-24 12:36 | disposition home or self-care (01) ==
LOC: RAD 12:37
PROVIDERS: PCP Nurse Practitioner; Visit Provider Nurse Practitioner
DX: R63.4 Abnormal weight loss (principal); G43.509 Persistent migraine aura without cerebral infarction, not intractable, without status migrainosus; K57.90 Diverticulosis of intestine, part unspecified, without perforation or abscess without bleeding; Z90.710 Acquired absence of both cervix and uterus; Z98.51 Tubal ligation status; G93.89 Other specified disorders of brain; G31.89 Other specified degenerative diseases of nervous system
CPT/HCPCS: 70551; 74177